=== PATIENT | female | born 1950 | race Caucasian/White ===

== ENCOUNTER 2024-09-05 13:01 | Inpatient (IN) ==
[2024-09-05 15:43] LABS: Basophils # (Auto) 0.04 K/mcL (0.00-0.30); Basophils % (Auto) 0.5 % (0.0-2.0); Eosinophils # (Auto) 0.13 K/mcL (0.00-0.70); Eosinophils % (Auto) 1.7 % (0.0-7.0); Hematocrit 34.3 % (34.1-44.9); Hemoglobin 11.6 g/dL (11.2-15.7); Lymphocytes # (Auto) 1.24 K/mcL (1.50-4.80); Lymphocytes % (Auto) 16.3 % (15.5-49.0); Mean Cell Volume 90.7 fL (80.0-100.0); Mean Corpuscular HGB Conc 33.8 g/dL (31.0-36.0); Mean Platelet Volume 8.5 fL (8.8-12.5); Monocytes # (Auto) 0.91 K/mcL (0.10-0.90); Neutrophils % (Auto) 69.1 % (38.0-78.0); Platelet Count 359 K/mcL (140-440); RBC 3.78 M/mcL (3.59-5.38); Red Cell Distribution Width 11.9 % (11.5-14.5); WBC 7.6 K/mcL (4.5-11.0)
[2024-09-05 16:05] LABS: ALT/SGPT 60 U/L (<40); AST/SGOT 67 U/L (<32); Albumin 4.4 gm/dL (3.2-5.2); Albumin/Globulin Ratio 1.8 (1.0-2.3); Alkaline Phosphatase 70 U/L (39-117); Bilirubin,Total 0.6 mg/dL (0.1-1.0); Blood Urea Nitrogen 18 mg/dL (8-23); Carbon Dioxide 24 mmol/L (22-30); Chloride 94 mmol/L (96-108); Globulin 2.5 gm/dL (2.2-3.7); Glomerular Filtration Rate 72; Glucose 112 mg/dL (70-105); Potassium 4.1 mmol/L (3.3-5.1); Sodium 134 mmol/L (133-145)
[2024-09-05 16:11] LABS: INR 0.9 (0.9-1.1); Prothrombin Time 12.5 sec (11.9-14.5)
[2024-09-05] MEDS ORDERED: ONDANSETRON 4 MG/2 ML VIAL ONE (16:33)
[2024-09-05] MEDS ORDERED: TRANEXAMIC ACID 1,000 MG/10 ML VIAL ONE (16:33)
[2024-09-05] MEDS ORDERED: PHENYLephrine 1 MG/10 ML SYRINGE (ANEST) ONE (16:33)
[2024-09-05] MEDS ORDERED: PROPOFOL 200 MG/20 ML VIAL IV ONE (16:33)
[2024-09-05] MEDS ORDERED: DEXAMETHASONE 10 MG/ML VIAL ONE (16:33)
[2024-09-05] MEDS ORDERED: KETAMINE 50 MG/ML Syringe IV ONE (16:33)
[2024-09-05] MEDS ORDERED: LIDOCAINE 2% PF 5 ML VIAL ONE (16:33)
[2024-09-05] MEDS ORDERED: FAMOTIDINE/PF 20 MG/2 ML VIAL IV ONE (16:34)
[2024-09-05] MEDS ORDERED: METOCLOPRAMIDE 10 MG/2 ML VIAL ONE (16:34)
[2024-09-05] MEDS ORDERED: ePHEDrine 50 MG/5 ML SYRINGE (ANEST) IV ONE (16:34)
[2024-09-05] MEDS: IPRATROPIUM/ALBUTEROL 3 ML AMPUL.NEB NEB ONE ×2 (16:59)
[2024-09-05] MEDS ORDERED: MIDAZOLAM 2 MG/2 ML VIAL ONE (17:03)
[2024-09-05] MEDS ORDERED: HYDROmorphone 0.5 MG/0.5 ML SYRINGE ONE ×2 (17:40→17:57)
[2024-09-05] MEDS ORDERED: ceFAZolin 1 GM VIAL ONE (17:42)
[2024-09-05] MEDS: ceFAZolin 1 GM VIAL IV SCH (17:43)
[2024-09-05] MEDS ORDERED: VASOPRESSIN 20 UNIT/ML VIAL ONE (18:57)
[2024-09-05] MEDS ORDERED: FLEETS ADULT 1 DOSE ENEMA PR PRN (18:58)
[2024-09-05] MEDS ORDERED: MAGNESIUM HYDROXIDE 30 ML ORAL.SUSP PO PRN (18:58)
[2024-09-05] MEDS ORDERED: POLYETHYLENE GLYCOL 3350 17 GM PACKET PO PRN ×2 (18:58→20:24)
[2024-09-05] MEDS ORDERED: BISACODYL 10 MG SUPP.RECT PR PRN (18:58)
[2024-09-05] MEDS ORDERED: IPRATROPIUM/ALBUTEROL 3 ML AMPUL.NEB NEB PRN ×2 (19:38→20:24)
[2024-09-05] MEDS ORDERED: fentaNYL 100 MCG/2 ML VIAL IV PRN ×2 (19:38→20:24)
[2024-09-05] MEDS ORDERED: ONDANSETRON 4 MG/2 ML VIAL IV PRN ×3 (19:38→20:24)
[2024-09-05] MEDS ORDERED: HYDROmorphone 0.5 MG/0.5 ML SYRINGE IV PRN ×2 (19:38→20:24)
[2024-09-05] MEDS ORDERED: NALOXONE HCL 0.4 MG/ML VIAL IV PRN ×2 (19:38→20:24)
[2024-09-05] MEDS: TRANEXAMIC ACID 1,000 MG/10 ML VIAL IV ONE (19:40)
[2024-09-05 19:55] LABS: Hematocrit 23.2 % (34.1-44.9); Hemoglobin 7.7 g/dL (11.2-15.7)
[2024-09-05] MEDS ORDERED: MAGNESIUM SULFATE 2 GM/50 ML BAG IV PRN (20:24)
[2024-09-05] MEDS ORDERED: POTASSIUM CHLORIDE 20 MEQ TABLET PO PRN ×2 (20:24)
[2024-09-05] MEDS ORDERED: morphine 4 MG/ML VIAL IV PRN (20:24)
[2024-09-05] MEDS ORDERED: POTASSIUM CHLORIDE 40 MEQ in DEXTROSE 5% IN WATER 500 ML IV PRN (20:24)
[2024-09-05] MEDS ORDERED: SENNOSIDES 1 TABLET PO PRN (20:24)
[2024-09-05] MEDS ORDERED: HYDROcodone/APAP 5/325MG TABLET PO PRN (20:24)
[2024-09-05] MEDS: TRANEXAMIC ACID 1,000 MG/10 ML VIAL ONE (20:32)
[2024-09-05] MEDS: LACTATED RINGERS 1,000 ML IV SCH ×3 (20:32→20:33)
[2024-09-05] MEDS: morphine 4 MG/ML VIAL IV PRN (20:54)
[2024-09-05] MEDS: SENNOSIDES 1 TABLET PO SCH (20:55)
[2024-09-05] MEDS: DOCUSATE SODIUM 100 MG CAPSULE PO SCH (20:55)
[2024-09-05] MEDS: ASPIRIN 325 MG ENTERIC COATED TABLET PO SCH (20:56)
[2024-09-05] MEDS: 0.9 % SODIUM CHLORIDE 10 ML SYRINGE IV SCH (20:56)
[2024-09-05] MEDS ORDERED: DOCUSATE SODIUM 100 MG CAPSULE PO SCH (21:00)
[2024-09-05] MEDS: ONDANSETRON 4 MG/2 ML VIAL IV PRN (21:17)
[2024-09-05] MEDS ORDERED: 0.9 % SODIUM CHLORIDE 10 ML SYRINGE IV SCH (22:00)
[2024-09-05] MEDS: ALBUMIN HUMAN 25 GM/100 ML BAG IV ONE (22:23)
[2024-09-06] MEDS: KETOROLAC 15 MG/ML VIAL IV PRN (01:20)
[2024-09-06] MEDS ORDERED: ceFAZolin 1 GM VIAL IV SCH (02:00)
[2024-09-06] MEDS: ceFAZolin 1 GM VIAL IV SCH (02:15)
[2024-09-06] MEDS: METOCLOPRAMIDE 10 MG/2 ML VIAL IV PRN (02:19)
[2024-09-06 06:31] LABS: ALT/SGPT 41 U/L (<40); AST/SGOT 50 U/L (<32); Alkaline Phosphatase 43 U/L (39-117); Bilirubin,Direct < 0.2 mg/dL (0-0.3); Bilirubin,Total 0.3 mg/dL (0.1-1.0); Blood Urea Nitrogen 23 mg/dL (8-23); Calcium 8.9 mg/dL (8.6-10.4); Carbon Dioxide 25 mmol/L (22-30); Chloride 97 mmol/L (96-108); Glomerular Filtration Rate 40; Glucose 179 mg/dL (70-105); Lactate Dehydrogenase 205 U/L (135-225); Phosphorous 4.1 mg/dL (2.5-4.5); Potassium 4.5 mmol/L (3.3-5.1); Sodium 134 mmol/L (133-145); Triglycerides 70 mg/dL (<150); Uric Acid 6.7 mg/dL (2.5-8.0)
[2024-09-06 06:40] LABS: Basophils # (Auto) 0.02 K/mcL (0.00-0.30); Basophils % (Auto) 0.2 % (0.0-2.0); Eosinophils # (Auto) 0 K/mcL (0.00-0.70); Eosinophils % (Auto) 0 % (0.0-7.0); Hematocrit 22.4 % (34.1-44.9); Hemoglobin 7.5 g/dL (11.2-15.7); Lymphocytes # (Auto) 0.48 K/mcL (1.50-4.80); Lymphocytes % (Auto) 3.8 % (15.5-49.0); Mean Cell Volume 92.2 fL (80.0-100.0); Mean Corpuscular HGB Conc 33.5 g/dL (31.0-36.0); Mean Platelet Volume 8.9 fL (8.8-12.5); Monocytes # (Auto) 0.96 K/mcL (0.10-0.90); Monocytes % (Auto) 7.7 % (1.0-12.0); Neutrophils % (Auto) 87.8 % (38.0-78.0); Platelet Count 276 K/mcL (140-440); RBC 2.43 M/mcL (3.59-5.38); WBC 12.5 K/mcL (4.5-11.0)
[2024-09-06] MEDS: ACETAMINOPHEN 325 MG TABLET PO PRN (09:15)
[2024-09-06] MEDS: LACTATED RINGERS 1,000 ML IV ONE (09:19)
[2024-09-06] MEDS: NICOTINE 7 MG PATCH TOPICAL SCH (10:55)
[2024-09-06] MEDS: IPRATROPIUM/ALBUTEROL 3 ML AMPUL.NEB NEB PRN (11:12)
[2024-09-06] MEDS: BUDESONIDE GLYCOPYR FORMOTEROL INH SCH (11:58)
[2024-09-07] MEDS: HYDROcodone/APAP 5/325MG TABLET PO PRN (03:16)
[2024-09-07 05:53] LABS: Hematocrit 18.4 % (34.1-44.9); Hemoglobin 6.1 g/dL (11.2-15.7)
[2024-09-07 06:36] LABS: Blood Urea Nitrogen 21 mg/dL (8-23); Calcium 8.9 mg/dL (8.6-10.4); Carbon Dioxide 25 mmol/L (22-30); Chloride 93 mmol/L (96-108); Glomerular Filtration Rate 62; Glucose 119 mg/dL (70-105); Potassium 4.1 mmol/L (3.3-5.1); Sodium 129 mmol/L (133-145)
[2024-09-07] MEDS: 0.9 % SODIUM CHLORIDE 250 ML IV SCH (08:51)
[2024-09-07] MEDS: METHOCARBAMOL 750 MG TABLET PO PRN (12:48)
[2024-09-07 16:57] LABS: Hematocrit 28.1 % (34.1-44.9); Hemoglobin 9.4 g/dL (11.2-15.7)
[2024-09-07 17:03] LABS: Sodium 132 mmol/L (133-145)
[2024-09-08 06:50] LABS: Hematocrit 27.1 % (34.1-44.9)
[2024-09-08 07:03] LABS: ALT/SGPT 22 U/L (<40); AST/SGOT 42 U/L (<32); Albumin 3.3 gm/dL (3.2-5.2); Albumin/Globulin Ratio 1.5 (1.0-2.3); Alkaline Phosphatase 68 U/L (39-117); Bilirubin,Direct 0.3 mg/dL (<0.3); Bilirubin,Total 0.5 mg/dL (0.1-1.0); Blood Urea Nitrogen 12 mg/dL (8-23); Carbon Dioxide 26 mmol/L (22-30); Chloride 97 mmol/L (96-108); Globulin 2.2 gm/dL (2.2-3.7); Glomerular Filtration Rate 84; Glucose 128 mg/dL (70-105); Lactate Dehydrogenase 200 U/L (135-225); Phosphorous 3.3 mg/dL (2.5-4.5); Sodium 133 mmol/L (133-145); Triglycerides 81 mg/dL (<150); Uric Acid 6.2 mg/dL (2.5-8.0)
[2024-09-08 13:14] VITALS: TEMP 98.1; O2SAT 94
== END 2024-09-08 12:48 | disposition home or self-care (01) | DRG 522 ==
LOC: ED 13:01 → SUR 16:37 → MEDSUR 20:17
PROVIDERS: ADMIT Internal Medicine; ATTEND Student in an Organized Health Care Education/Training Program